=== PATIENT | male | born 1995 | race Caucasian/White ===

== ENCOUNTER → 2017-03-26 | Day surgery (SDC) | payer BC ==
[2017-03-20 10:05] VITALS: Ht 180.3 cm; Wt 109.1 kg
--- NOTE | 2017-03-25 15:45 | History and Physical ---
History & Physical Date & Time of Service: Mar 19, 2017 at 15:20 Chief Complaint: Left Knee Acl, Medial & Lateral Meniscus Tears Primary Care Physician: History of Present Illness Source: patient Patient is a 21-year-old male who injured his left knee while skateboarding on 03/07/2017. Presented to our office was seen and evaluated by myself as well as Dr. Chatterjee. He states that he does have a history of having some type of meniscal problem within his left knee for the past 4-5 years. He did not require any surgery. He says occasionally it did lock up on him and he was instructed not to bend his knee past 90. He's never had any giving way sensations. He states that from his injury on 03/07/2017 he did feel a pop. He knew something was wrong and it was more than just meniscus that he had been dealing with the last couple of years. He was at [place] at the time. He was seen by orthopedics [place] [facility] [place] at [place]. X-rays were taken which were found to be negative. An MRI was ordered and he was found to have a complete anterior cruciate ligament tear with probable medial and lateral meniscal tears of his left knee. Due to these findings it was recommended for him to be seen by an orthopedic surgeon. He denies any other injuries. States that his knee did swell immediately has been improving the last few days. He says that he initially was unable to comfortably bear weight due to swelling and pain. That has been improving over the last couple of days. Was given a brace at the orthopedic institute [facility] that he's been wearing. He did have some crutches that he borrowed and has progressed off of them the last few days. He still has pain with any type of walking, bending or moving of the knee. His biggest concern is the instability. He is going to be at [employer] student at the [employer] in the fall. 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 His parents are present with him today. Due to his MRI findings conservative versus surgical intervention was discussed with the patient and his parents. He wishes to proceed with surgical intervention. He is scheduled for a left knee arthroscopy, anterior cruciate ligament reconstruction with bone tendon bone autograft, possible medial and lateral meniscal repair versus debridement with Dr. Chatterjee on 03/26/2017 at the [facility] surgery [place] Family History Noncontributory Social History Smoking Status: Never Smoker Smokeless Tobacco Use: No Alcohol Use: socially Drug Use: none Marital Status: single Occupational Status: [employer] student Home Medications No Active Prescriptions or Reported Meds Review of Systems Constitutional: No fever, No chills, No weight loss Eyes: No eye pain, No redness ENT: No hearing loss, No sore throat Respiratory: No cough, No sputum, No wheezing, No shortness of breath Cardiovascular: No chest pain, No edema, No palpitations Abdomen: No pain, No nausea, No vomiting, No diarrhea, No constipation Musculoskeletal: + joint pain, + swelling, No calf pain Genitourinary - Male: No hematuria, No dysuria, No urinary frequency, No urinary urgency, No urinary hesitancy Neurologic: No numbness/tingling Psychiatric: No depression symptoms, No anxiety Endocrine: No fatigue Hematologic / Lymphatic: No abnormal bleeding/bruising, No clotting problems Integumentary: No rash, No itch Physical Exam General Appearance: WD/WN, no apparent distress Head: normocephalic, atraumatic Eyes: normal inspection, PERRL, EOMI, sclerae normal ENT: normal ENT inspection, hearing grossly normal, TMs normal, pharynx normal Neck: supple, no carotid bruits, trachea midline Respiratory/Chest: chest non-tender, lungs clear, normal breath sounds, no respiratory distress, no accessory muscle use Cardiovascular: regular rate, rhythm, no edema, no murmur, normal peripheral pulses Abdomen/GI: normal bowel sounds, non tender, soft Extremities/Musculoskelatal: no calf tenderness, normal capillary refill, no pedal edema, + pertinent finding (healing dogbite wound left calf, mild surrounding erythema, no evidence of abscess or wound infection. Nontender to palpation. Exam of left knee ROM: 0/0/118, positive bryn, nontender with palpation of medial and lateral joint lines today, trace effusion. extensor mechanism intact. ) Neurologic/Psych: no motor/sensory deficits, alert, normal mood/affect, normal reflexes, oriented x 3 Skin: normal color, warm/dry, no rash Lymphatic: no adenopathy Diagnostics Diagnostic Radiology X-rays of his left knee 3 views a normal study. MRI of his left knee shows a complete anterior cruciate ligament tear of his left knee, discoid lateral meniscus, probable medial and lateral posterior horn meniscal tears. Joint effusion. Impression Assessment and Plan Assessment: Left knee anterior cruciate ligament tear, probable posterior horn medial and lateral meniscal tears, discoid lateral meniscus Plan: Patient is scheduled for left knee arthroscopy, anterior cruciate ligament reconstruction with bone tendon bone autograft, possible medial and lateral meniscal repair versus debridement with Dr. Khari Farrell on 03/26/2017 risks and complications of surgery explained to the patient and include but are not limited to infection, pain, bleeding, swelling, weakness, stiffness, incomplete relief of symptoms, hardware failure, graft rupture, arthritis, recurrent tear of the meniscus, blood clots, embolisms, heart attack, stroke, and . Informed consent was obtained by Dr. Chatterjee. All questions were answered. He does not need any preoperative lab work, EKG, or medical clearance prior to surgery. He will follow up 4-5 days after surgery to start physical therapy. He will also follow-up with Dr. Chatterjee approximately 10- 14 days after surgery for suture removal. He knows to call with any further problems or questions. He was given a prescription for Percocet for postoperative pain control. He was given crutches. He was educated on using the CHG cloths. A prescription was provided for an Ice Man post operatively. Post operative course was discussed. He was instructed to be NPO p MN.
[~2017-03-26] VITALS: Ht 180.3 cm; Wt 109.1 kg
[~2017-03-26] MED LIST: ATROPINE SULFATE 0.1 MG/ML 5ML SYR IV PRN; BUPIVACAINE 0.5 % 5 MG/1 ML MPF 30ML VIAL ONE; CEFAZOLIN 2000 MG/60 ML D5W 60 ML IV SCH; CEFAZOLIN 2000 MG/60 ML D5W IV SCH; CEFAZOLIN SOD 1 GM VIAL ONE; DEXAMETHASONE SOD INJ 4 MG/ML VIAL ONE; EpHEDrine SULFATE INJ 50 MG/ML AMP IV PRN; EpINEphrine INJ 1MG/ML AMP 1 MG/ML AMP ONE; FENTANYL CITRATE INJ 50 MCG/1 ML 2 ML VIAL IV PRN; FENTANYL CITRATE INJ 50 MCG/1 ML 2 ML VIAL ONE; HYDROmorphone INJ 1 MG/ML SYR ONE; KETAMINE HCL INJ 50 MG/ML 10 ML VIAL ONE; LACTATED RINGER'S 1000ML 1,000 ML IV SCH; LIDOCAINE HCL 2% 2 ML VIAL (20MG/ML) ONE; LIDOCAINE/EPINEPHRINE 1% INJ 50 ML VIAL ONE; MIDAZOLAM HCL 1 MG/ML 2ML VIAL ONE; MoRPHine SULFATE 2 MG/ML CARP IV PRN; MoRPHine SULFATE 4 MG/ML 1 ML CARP\\VIAL IV PRN; ONDANSETRON INJ 2 MG/ML 2 ML VIAL IV PRN; ONDANSETRON INJ 2 MG/ML 2 ML VIAL ONE; OXYC-57 PO; OXYCODONE/ACETAMINOPHEN 5-325 TAB PO PRN; PATIENT'S ALLERGY INFO NEEDS ENTERED SCH; PROPOFOL IV EMULSION 10 MG/ML 20 ML VIAL IV ONE; ROPIVACAINE 0.5% 5 MG/ML 30 ML VIAL ONE; SCOPOLAMINE 1.5 MG TDSY TD ONE; SODIUM CHLORIDE 0.9% 1000ML 1,000 ML IV SCH
--- NOTE | 2017-03-26 12:18 | History & Physical Bridge Note ---
H&P Re-Evaluation Bridge Note: I have examined the patient, reviewed the History & Physical and in the interval since the performance of the History & Physical I have noted the following changes of clinical significance: No changes noted
--- NOTE | 2017-03-26 16:17 | [facility] Operative Report ---
Operative Report Operative Date Mar 26, 2017. Pre-Operative Diagnosis Left Knee ACL tear, Medial and Lateral Meniscus Tears Post-Operative Diagnosis Same Procedure(s) Performed Left Knee Arthroscopic Anterior Cruciate Ligament Reconstruction With Patellar Tendon Autograft, Partial Lateral Meniscectomy, Lateral Meniscus Repair Surgeon Dr. Chatterjee Line Locator Surgeon(s) Beatriz Jansen PA-C; Dr. Duval Estimated Blood Loss 5 mL Findings Stable partial thickness undersurface tear medial meniscus. Complex tear involving discoid lateral meniscus. Complete anterior cruciate ligament tear. Specimens None Drains none Anesthesia laryngeal mask with peripheral nerve block Complication(s) None Disposition Recovery Room / PACU Implants Multiple sutures for meniscus repair. 8 x 20 and 9 x 20 interference screws Indications Patient's a 21-year-old male status post injury to his left knee. He is known to have history of a discoid lateral meniscus. MRI and clinical examination are consistent with a torn anterior cruciate ligament. MRI suggest a medial and possibly lateral meniscal tears longest torn anterior cruciate ligament. He is taken to surgery for correction of the after mentioned pathology. Description of Procedure Patient's identified as tenderness around. He identified the operative site as the left knee. I marked with my initials. A preoperative surgical timeout was performed. A preoperative dose of IV antibiotics was given. He was positioned supine on the OR table. A laryngeal mask anesthetic and peripheral nerve block were stonemason by the anesthesiologist. DVT prophylaxis will be done with early patient mobility. A bump was placed under the left hip a lateral post used for stressing the knee was prepped and draped in usual sterile fashion. A tourniquet was applied to the left thigh prior to prepping and draping. The examination under anesthesia revealed range of motion 5/0/125 in the right knee compared to 2/0/120 in the left knee. He had a grade 2 pivot shift and a plus positive Andreia in the left knee. There is trace left knee LCL laxity the knees were otherwise symmetrically stable. The procedure began by establishing inferolateral viewing portal superior lateral outflow portal and inferomedial working portal. Diagnostic arthroscopy was performed. There was no pathology in the suprapatellar pouch the medial lateral gutters were normal. Trochlea and patella normal. The retropatellar fat pad was debrided. The intercondylar notch showed a normal PCL and a completely torn anterior cruciate ligament with a hemorrhagic stump. The medial compartment showed normal articular surfaces. There was a 10-12 mm partial-thickness undersurface stable pair towards the posterior horn meniscal root area of the medial meniscus. The posterior medial compartment view was normal. This was abraded with a rasp and left in situ. The lateral compartment showed normal posterior lateral compartment view. The meniscal roots were intact. There was a complex appearing tear of the lateral meniscus which was discoid in shape. The tear anteriorly was perhaps 5 mm from the meniscal capsular junction. Posteriorly it was 10-12 mm from meniscocapsular junction. Probing the meniscus revealed some degree of complex of the such as horizontal cleavage component. This was not a repairable tear and saucerization was performed. The 10-12 mm rim was left posteriorly tapering it anteriorly to a 5-7 mm wide brim. A abundant meniscal tissue 7-10 millimeters was left anteriorly. Removing this in her portion of the discoid meniscus the outer portion was noted to have horizontal cleavage tear back to the meniscal capsular junction. This was cleaned with the shaver. I then elected to perform a hay bale type repair using the ceterix novostitch. 3 sutures were passed through and through the periphery of the meniscus and then tied over the both limbs of the horizontal cleavage component. A modified [place] knot backed up with reversed half hitches on alternating posts was utilized. Is preserved meniscal bulk and gave a secure stable repair. The posterior horn lateral meniscus did appear to be slightly hypermobile. Cartilage normal. The limb was exsanguinated with the Esmarch tourniquet inflated at 275 mmHg. Incision was made through the skin subcutaneous tissues and down to the level of the patellar tendon. The peritenon was dissected off of the patellar tendon proximally and distally. Retractors were inserted. The patellar tendon measured approximately 35 mm in width. The central 12 mm was harvested as a bone patellar tendon bone autograft. Graft was taken the back table was prepared to an overall length of 95 mm. The patellar block was 10 x 22. The patella tibial block was 10 x 27. Appropriate markings and sutures were applied. Back inside the knee the soft tissue in the intercondylar notch was debrided. An accessory medial portal was created. The lateral wall was denuded of soft tissue. The lateral intercondylar ridge and lateral bifurcate ridge were noted. The anatomic center of the femoral anterior cruciate ligament origin was noted based on anatomical landmarks and a lluvia was placed at this location. This was confirmed with a arthroscopic ruler. Likewise on the tibial side anatomic landmarks utilized to lluvia the center of the anterior cruciate ligament tibial footprint. The Arthrex guide set at 55 placed through the accessory medial portal I guidepin was drilled and placed on the tibial side which is in good position. This guidepin was just anterior to the MCL. Tunnel length was 40 mm. The tunnel was created and the intra-and extra-articular entrances of the tunnel were cleaned of soft tissue. The intra-articular entrance was beveled with a rasp. The knee was placed in the hyperflexed position and through an accessory medial portal I guidepin was introduced into the femoral tunnel location. This was drilled through and through. The bone length was 40 mm. A socket of 25 mm and the length was created using a profile reamer. This was 10 mm in diameter. The knee was cleaned of bony debris and the femoral tunnel was dilated with a 10 mm dilator. A shuttling suture was passed The graft was then easily passed into position with the knee in a hyperflexed position. An 8 x 20 round headed interference screw was inserted anterior to the tibial bone block after use of a graft wellhead pumper and nitinol guidewire. There was no roof wall or PCL impingement the anterior cruciate ligament graft tightened 1-2 mm in terminal extension and protruded about 3 mm distal to the tibial tunnel. The knee was cycled for isometry. The knee was then placed into 2 of hyperextension which was the maximum amount and the graft was then fixated in this position under tension. 9 x 20 interference screw was inserted. The bone block was stable the Andreia was negative and point firm pivot shift eliminated. The graft was palpated intra-articularly and there was excellent tension. The extraneous instruments and sutures were removed from the knee. the portals were closed with 4-0 nylon. Patellar tendon was reapproximated with #1 Vicryl. The patellar defect was bone grafted with bone. The peritenon was closed using 2-0 Vicryl the skin was closed with 2-0 Vicryl and the skin with a 4-0 Monocryl suture. The leg was cleaned with wet and dry sponges the tourniquet was let down prior to wound closure after 90 minutes of inflation. Sterile dressings applied along the full length Dayne wrap ice cooling pad and a hinged brace locked in extension. Patient was awakened from anesthesia without difficulty and taken to the recovery room in stable condition. There were no specimens or complications. Counts are correct in the case. Blood loss was minimal. At the conclusion operation spoke the patient's family and informed of my findings. Detailed postoperative instructions were given. He can rehabilitated according to the anterior cruciate ligament protocol. This time he'll be partial weightbearing with crutches. I attest to the content of the Intraoperative Record and any orders documented therein. Any exceptions are noted below.
--- NOTE | 2017-03-26 16:21 | [facility] Operative Report ---
Operative Report Operative Date Mar 26, 2017. Pre-Operative Diagnosis Left Knee ACL tear, Medial and Lateral Meniscus Tears Post-Operative Diagnosis Same Procedure(s) Performed Left Knee Arthroscopic Anterior Cruciate Ligament Reconstruction With Patellar Tendon Autograft, Partial Lateral Meniscectomy, Lateral Meniscus Repair Surgeon Dr. Chatterjee Acid Conditioner Surgeon(s) Beatriz Jansen PA-C; Dr. Duval Estimated Blood Loss 5 mL Findings Left knee anterior cruciate ligament tear, lateral meniscus tear, discoid lateral meniscus Specimens None Drains none Anesthesia laryngeal mask with peripheral nerve block Complication(s) None Disposition Recovery Room / PACU Indications Patient is a 21-year-old male status post left knee injury approximately 2 weeks ago. He had immediate pain in his left knee and felt a pop. He had pain with weightbearing. He was seen and evaluated in urgent care and x-rays were ordered. No acute bony abnormality or fracture was appreciated. An MRI was then ordered and he was found to have a possible medial and lateral meniscal tear and anterior cruciate ligament tear left knee. He was seen and evaluated by Dr. Chatterjee. Surgical intervention was recommended. He agreed to proceed with surgery. Risks and complications were discussed and informed consent was obtained. Description of Procedure Patient was taken to the operating room, placed under general anesthesia with peripheral nerve block done preoperatively. He was given 2 g of IV Ancef for surgical prophylaxis. Timeout was performed. He was prepped and draped in routine sterile fashion. I was present during the entire case, please see Dr. Chatterjee's operative report for further detail. Patient was awakened and taken to the recovery room in stable condition. I attest to the content of the Intraoperative Record and any orders documented therein. Any exceptions are noted below.
--- NOTE | 2017-03-26 16:22 | Discharge Instructions-SurgCtr ---
Discharge Instructions Date of Service Mar 26, 2017. Visit Reason for Visit: Left Knee Acl, Medial & Lateral Meniscus Tears Discharge Discharge Diagnosis / Problem: left knee acl, medial and lateral meniscus Discharge Goals Goal(s): Decrease discomfort, Improve function, Increase independence Activity Recommendations Activity Limitations: per Instructions/Follow-up section Anesthesia . Post Anesthesia Instructions: If you have had General Anesthesia or IV Sedation: * Do not drive today. * Resume driving when surgeon permits. * Do not make important decisions or sign legal documents today. * Call surgeon for: 1. Temperature elevations greater than 101 degrees F. 2. Uncontrollable pain. 3. Excessive bleeding. 4. Persistent nausea and vomiting. 5. Medication intolerance (nausea, vomiting or rash). * For nausea and vomiting use only clear liquids such as: tea, soda, bouillon until nausea subsides, then gradually increase diet as tolerated. * If you have any concerns or questions, call your surgeon's office. If physician is unavailable and it is an emergency, call 911 or go to the nearest emergency room. . Instructions / Follow-Up Instructions / Follow-Up The following instructions are a useful guide to questions you may have after your Anterior Cruciate Ligament Reconstruction surgery. If you have any questions contact the office at . ACTIVITY RECOMMENDATIONS: * Heavy manual labor is not permitted until 4-6 months after surgery. * Sports are not permitted until 6-9 months after surgery. * Return to activity is individualized. * DRIVING: Driving is not permitted until 3-4 weeks after surgery at a minimum. Please ask your doctor when it is safe to resume driving. If you have an automatic vehicle and your left leg has been operated on, then you may begin driving as soon as you are comfortable and can drive safely. * BATHING: You may shower or sponge-bathe immediately after surgery. The dressing will need to be covered with a plastic bag or plastic wrap until the dressing is changed on the fourth or fifth day after surgery. Once the dressing has been changed on the fourth or fifth day after surgery, you may shower and get the incision wet. * Wash with regular soap and water. * Do not bathe (submerge the incision), soak, swim or use a hot tub until the incision is completely healed over with normal skin and the doctor has given the OK to proceed. * There is no need to apply any ointments, powders or salves to your incision. * Do not apply alcohol or hydrogen peroxide directly to the incision. Diluted peroxide (50:50 mixture with sterile saline) may be used to clean dried blood from around the incision area. WORK/SCHOOL: * You may return to sedentary work or school when you are feeling comfortable. This is usually 3-7 days after surgery. * Expect increased discomfort with increased activity. Continue to elevate and ice the leg as much as possible. DIET: * Resume previous diet. MEDICATIONS: * You will have a prescription for pain medication and an anti-inflammatory medication after surgery. Use the pain pills for severe pain and the anti-inflammatory for less severe pain. * Once the pain pills have run out, try to use the anti-inflammatory. If this is not effective then contact the office for assistance. * The pain medication may cause nausea, constipation and sleepiness. You should see how they affect you before driving or similar activity. * The anti-inflammatory may cause stomach upset and bleeding. If this occurs, let your doctor know immediately . * Some patients may need blood clot prevention. This can be done with either a pill or a simple shot. Your doctor will advise you on when to begin these medications and how to take them. * Do not take aspirin or other anti-inflammatory products (i.e. Advil or Aleve ) if taking blood thinner medication. * Take a stool softener like Colace or a stimulant like Senokot to prevent constipation. SPECIAL CARE INSTRUCTIONS: The following instructions are a useful guide to questions you may have after your surgery. If you have any questions contact the office at . ICE: * You have the option of an ice cooler, gel packs or ice bags. * If you have an ice cooler, refer to the instructions for that device. * If you do not have an ice cooler, then you will need to use ice bags or gel packs. * Do not apply ice directly to the skin. * Use a thin dressing or stockinet between the skin and ice bag. * Apply ice for 20-30 minutes and repeat every 2-4 hours. This is especially important for the first 7-10 days after surgery. * Once the pain improves, use ice as needed. * The ice cooler can be used continuously. ELEVATION: * Keep your leg elevated at or above the level of your heart as much as possible. * Expect some increased discomfort and swelling if you are standing for any length of time. * When lying down, avoid placing anything under your knee. Rather, prop your leg up by placing several pillows under your heel or calf. DRESSING: * Your dressing will be changed at your first therapy appointment approximately 4-5 days after surgery. * Band-Aids, tape strips or gauze may be applied. You may then change your dressing daily. * Always wash your hands prior to touching the incision area. * Reapply dressing followed by the Dayne wrap or Tubi-screening technician stockinet, ice cooling pad and then the brace. * Once the stitches are removed, you may leave the wound open to air or cover with an Dayne Bandage or Tubi-screening technician stockinet. * If you have been given a white elastic stocking (KIM hose), wear as much as possible for the first 1-3 weeks depending on swelling. * Expect some bloody drainage for the first few days after surgery. * Leave the tape strips in place for 5-7 days. * Band-Aids and gauze may be changed daily. CRUTCHES: * You will need to use crutches after surgery. * Until your first doctor's appointment, you must use your crutches at all times when walking and should put no more than 50% of your normal weight on the surgical leg. * After your first doctor's appointment, you may gradually progress to full weight bearing and discontinue crutches as tolerated under the guidance of your therapist. * If you have had a microfracture procedure done, you may be advised to be non- weight bearing for up to 6 weeks. BRACE: * After surgery, you will be placed into a range of motion brace locked with your leg straight. This brace is to be worn at all times when walking (even with the crutches) and sleeping until your first doctors appointment. * The brace may be removed for therapy. * After your first therapy appointment, your therapist will open the brace to allow bending of the knee once your muscles are working better. * Until your first doctor's appointment, you should sleep with your brace locked with your knee fully straight. * If you have chosen to use a functional ACL brace then this brace will be supplied about 2-3 months after your surgery. During that time, you will attend therapy 2- 3 times per week. You will also need to do daily exercises for range of motion and strength as instructed. PROBLEMS/QUESTIONS: * If you have any problems such as severe pain, numbness, tingling or high fevers or if you have any questions, please contact the office at [phone]. * It is not uncommon to have some numbness and tingling after the surgery especially if you have had a nerve block done. This should gradually improve over the first 1- 2 days. If this persists longer or worsens then contact the office. FOLLOW UP VISIT: * If not already scheduled, please call the office at to schedule follow-up appointments for approximately 10 days and one month after surgery followed by monthly appointments thereafter. * You will start physical therapy on 03/30/2017 at 8:30 AM. * You have follow up with Dr. Chatterjee on 04/08/2017 at 2:15 PM. Diet Recommendations Home Diet: no limitations, resume previous diet Procedures Procedures Performed: Left Knee Arthroscopic Anterior Cruciate Ligament Reconstruction With Patellar Tendon Autograft, Partial Lateral Meniscectomy, Lateral Meniscus Repair Pending Studies Studies pending at discharge: no Medical Emergencies . Who to Call and When: Medical Emergencies: If at any time you feel your situation is an emergency, please call 911 immediately. . Non-Emergent Contact Non-Emergency issues call your: Surgeon Call Non-Emergent contact if: temperature is above 101, your pain is worsening , wound has increased drainage, wound has increased redness, wound has increased pain, you have any medication questions . . "Provider Documentation" section prepared by Margot Jansen. . [place] Drug Monitoring Program Search Results: patient reviewed within database, no issues identified
[2017-03-26 17:07] VITALS: TEMP 36.9
[2017-03-26 17:44] VITALS: BP 147/84; PULSE 98; O2SAT 95
--- NOTE | 2017-03-26 17:56 | Anesthesia Progress Nt - [facility] ---
Anesthesia Post Op Note Date & Time Mar 26, 2017 at 17:56 Vital Signs Pain Intensity: 3.0 Vital Signs Past 12 Hours Date Time Temp Pulse Resp B/P (MAP) Pulse Ox O2 Delivery O2 Flow Rate FiO2 03/26/17 17:44 98 16 147/84 (105) 95 Room Air 03/26/17 17:07 36.9 97 16 157/78 (104) 94 Room Air 03/26/17 17:04 36.9 108 14 03/26/17 17:04 109 14 100 03/26/17 17:00 156/85 03/26/17 16:59 94 19 94 03/26/17 16:59 94 19 03/26/17 16:56 148/96 03/26/17 16:54 97 2 03/26/17 16:54 97 2 95 03/26/17 16:50 146/93 03/26/17 16:49 99 5 03/26/17 16:49 99 5 97 03/26/17 16:45 133/82 03/26/17 16:44 95 16 96 03/26/17 16:44 93 16 03/26/17 16:41 150/87 03/26/17 16:39 109 21 03/26/17 16:39 110 21 98 03/26/17 16:36 128/80 03/26/17 16:34 91 15 03/26/17 16:34 90 15 97 03/26/17 16:30 142/84 03/26/17 16:29 93 13 03/26/17 16:29 94 13 97 03/26/17 16:25 153/84 03/26/17 16:24 94 8 98 03/26/17 16:24 95 8 03/26/17 16:22 36.5 98 20 138/81 99 Mask 6 03/26/17 16:21 155/86 03/26/17 16:19 116 18 03/26/17 16:19 117 18 138/81 98 03/26/17 12:39 0 03/26/17 12:38 0 03/26/17 12:37 135/75 03/26/17 12:33 71 03/26/17 12:33 71 15 99 03/26/17 12:32 81 03/26/17 12:32 77 10 100 03/26/17 12:31 106/76 03/26/17 12:27 72 03/26/17 12:27 74 16 99 03/26/17 12:26 131/64 03/26/17 12:22 78 17 100 03/26/17 12:22 79 03/26/17 12:21 131/100 03/26/17 12:19 148/91 03/26/17 12:17 101 24 03/26/17 09:37 120/68 03/26/17 09:36 36.9 79 16 114/67 (83) 96 Room Air 03/26/17 09:36 114/67 Notes Mental Status: alert / awake / arousable, participated in evaluation Pt Amnestic to Procedure: Yes Nausea / Vomiting: adequately controlled Pain: adequately controlled Airway Patency, RR, SpO2: stable & adequate BP & HR: stable & adequate Hydration State: stable & adequate Anesthetic Complications: no major complications apparent
== END | disposition home or self-care (01) ==
LOC: X.SURG 09:10
PROVIDERS: ATTEND Physical Medicine & Rehabilitation Sports Medicine
DX: S83.512A Sprain of anterior cruciate ligament of left knee, initial encounter (principal); S83.242A Other tear of medial meniscus, current injury, left knee, initial encounter; S83.272A Complex tear of lateral meniscus, current injury, left knee, initial encounter; W19.XXXA Unspecified fall, initial encounter; Y93.51 Activity, roller skating (inline) and skateboarding; E66.9 Obesity, unspecified

== ENCOUNTER → 2017-04-08 | Outpatient (CLI) | payer BC ==
[~2017-04-08] MED LIST changes: -ATROPINE SULFATE 0.1 MG/ML 5ML SYR IV PRN; -BUPIVACAINE 0.5 % 5 MG/1 ML MPF 30ML VIAL ONE; -CEFAZOLIN 2000 MG/60 ML D5W 60 ML IV SCH; -CEFAZOLIN 2000 MG/60 ML D5W IV SCH; -CEFAZOLIN SOD 1 GM VIAL ONE; -DEXAMETHASONE SOD INJ 4 MG/ML VIAL ONE; -EpHEDrine SULFATE INJ 50 MG/ML AMP IV PRN; -EpINEphrine INJ 1MG/ML AMP 1 MG/ML AMP ONE; -FENTANYL CITRATE INJ 50 MCG/1 ML 2 ML VIAL IV PRN; -FENTANYL CITRATE INJ 50 MCG/1 ML 2 ML VIAL ONE; -HYDROmorphone INJ 1 MG/ML SYR ONE; -KETAMINE HCL INJ 50 MG/ML 10 ML VIAL ONE; -LACTATED RINGER'S 1000ML 1,000 ML IV SCH; -LIDOCAINE HCL 2% 2 ML VIAL (20MG/ML) ONE; -LIDOCAINE/EPINEPHRINE 1% INJ 50 ML VIAL ONE; -MIDAZOLAM HCL 1 MG/ML 2ML VIAL ONE; -MoRPHine SULFATE 2 MG/ML CARP IV PRN; -MoRPHine SULFATE 4 MG/ML 1 ML CARP\\VIAL IV PRN; -ONDANSETRON INJ 2 MG/ML 2 ML VIAL IV PRN; -ONDANSETRON INJ 2 MG/ML 2 ML VIAL ONE; -OXYCODONE/ACETAMINOPHEN 5-325 TAB PO PRN; -PATIENT'S ALLERGY INFO NEEDS ENTERED SCH; -PROPOFOL IV EMULSION 10 MG/ML 20 ML VIAL IV ONE; -ROPIVACAINE 0.5% 5 MG/ML 30 ML VIAL ONE; -SCOPOLAMINE 1.5 MG TDSY TD ONE; -SODIUM CHLORIDE 0.9% 1000ML 1,000 ML IV SCH
== END | disposition home or self-care (01) ==
LOC: C.RDSM 14:15
PROVIDERS: ATTEND Physical Medicine & Rehabilitation Sports Medicine
DX: S83.512A Sprain of anterior cruciate ligament of left knee, initial encounter (principal); X58.XXXA Exposure to other specified factors, initial encounter